=== PATIENT | male | born 1965 ===

== ENCOUNTER 2021-06-26 22:51 | Emergency (ER) | payer OTHER ==
[2021-06-27] MEDS ORDERED: Ketorolac 30 MG/ML SDV IM ONE (00:50)
== END 2021-06-27 01:46 | disposition home or self-care (01) ==
LOC: MW.ED 22:51
DX: S46.911A Strain of unspecified muscle, fascia and tendon at shoulder and upper arm level, right arm, initial encounter (principal); I10 Essential (primary) hypertension; E11.9 Type 2 diabetes mellitus without complications; Z88.0 Allergy status to penicillin; Z79.899 Other long term (current) drug therapy; Z79.84 Long term (current) use of oral hypoglycemic drugs
CPT/HCPCS: 73030; 96372; 99283; J1885